=== PATIENT | female | born 1950 ===

== ENCOUNTER 2018-12-21 13:05 | Emergency (ER) | payer MEDICARE, OTHER ==
[2018-12-21 13:09] VITALS: BMI 26.4
[2018-12-21 13:10] VITALS: BP 159/76; PULSE 54; RESP 17; TEMP 98.8; O2SAT 96
--- NOTE | 2018-12-21 13:50 | ED PDOC ---
Arrival/HPI - General Chief Complaint: Abnormal Skin Integrity Time Seen by Provider: 12/21/18 13:17 - History of Present Illness Narrative History of Present Illness (Text): 12/21/18 13:45 68 y/o F with hx of CAD, HTN, HLD, DM (s/p cardiac catheterization 1 month ago) is presenting with complaints of itchy, painful rash x 2 days that started on right side of her back and spread across to beneath the right breast. She reports subjective fever, cough, and runny nose x 7 days, but denied any similar symptoms in the past, sick contact, recent travel, nausea, vomitting, diarrhea. PMH: CAD, HTN, HLD, DM Meds: janumet, atorvastatin, metoprolol, aspirin, clopidogrel, enalipril-HCTZ, vid D Allergies: NKDA Surghx: cardiac catheterization 1 month ago; b/l cataract surgery, uterine prolapse repair, b/l tubal ligation, tonsilectomy Famhx: noncontributory Sochx: denies ROS: all points reviewed and are negative unless otherwise noted in HPI Past Medical History - Cardiac Hx Hypertension: Yes - Endocrine/Metabolic Hx Endocrine Disorders: Yes Hx Diabetes Mellitus Type 2: Yes - Surgical History Other/Comment: PATIENT DOES NOT KNOW THE TYPES OF SURGERY SHE HAS HAD - Anesthesia Hx Anesthesia: Yes Hx Anesthesia Reactions: No (PATIENT DOES NOT KNOW) Family/Social History Family/Social History: Unknown Family HX Smoking Status: Never Smoked Allergies/Home Meds Allergies/Adverse Reactions: Allergies No Known Allergies Allergy (Verified 07/24/17 09:30) Home Medications: Home Meds Medication Instructions Recorded Confirmed Atorvastatin [Lipitor] 1 tab PO DAILY 12/11/16 12/11/16 Clopidogrel [Plavix] 1 tab PO DAILY 12/11/16 12/11/16 Enalapril Maleate [Vasotec] 1 tab PO DAILY 12/11/16 12/11/16 MetFORMIN [glucoPHAGE] 1 tab PO BID 12/11/16 12/11/16 Physical Exam Vital Signs Temp Pulse Resp BP Pulse Ox 12/21/18 13:09 98.8 F 54 L 17 159/76 H 96 Temperature: Afebrile Pulse: Bradycardic Appearance: Positive for: Non-Toxic Mental Status: Positive for: Alert and Oriented X 3 - Systems Exam Head: Present: Atraumatic, Normocephalic Pupils: Present: PERRL Conjunctiva: Present: Normal Mouth: Present: Moist Mucous Membranes Pharnyx: No: ERYTHEMA Respiratory/Chest: Present: Clear to Auscultation. No: Wheezes Cardiovascular: Present: Normal S1, S2, Bradycardic. No: Murmurs Abdomen: Present: Normal Bowel Sounds. No: Tenderness, Distention, Rebound, Guarding Back: Present: Other (papulovesicular lesions of varying size along T5/T6 dermatome from underneath rt breast across rt which does not cross over midline) Lower Extremity: Present: NORMAL PULSES Skin: Present: Rashes Psychiatric: Present: Alert, Oriented x 3, Normal Mood - PA / MANAGER MACHINE / Resident Statement MD/DO has reviewed & agrees with the documentation as recorded. Disposition/Present on Arrival - Present on Arrival Any Indicators Present on Arrival: No - Disposition Have Diagnosis and Disposition been Completed?: Yes Diagnosis: Shingles Disposition: HOME/ ROUTINE Disposition Time: 13:54 Condition: FAIR Prescriptions: traMADol [Ultram] 50 mg PO Q8 #10 tab Valacyclovir HCl [Valtrex] 1 gm PO TID #30 tablet Referrals: Talib Lambert MD [Medical Doctor] - Forms: [employer] (Azeri)
== END 2018-12-21 14:15 | disposition home or self-care (01) ==
LOC: H.ER 13:05
DX: B02.9 Zoster without complications (principal); E11.9 Type 2 diabetes mellitus without complications; Z79.84 Long term (current) use of oral hypoglycemic drugs